=== PATIENT | female | born 2005 | race Two or more races ===

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

== ENCOUNTER 2025-02-04 21:38 | Emergency (ER) | payer OTHER, SELFPAY ==
[2025-02-04 21:53] VITALS: BP 109/63; PULSE 77; RESP 16; TEMP 36.4; O2SAT 95; BMI 26.6
--- NOTE | 2025-02-04 22:55 | PC.NURSE ---
pt awaiting provider eval- no complaints at this time
--- NOTE | 2025-02-04 23:36 | ED.EXTPRO ---
HPI - Extremity Problem General Chief complaint: Extremity Injury, Upper Stated complaint: left thumb inj Time Seen by Provider: 02/04/25 22:24 Source: patient Mode of arrival: ambulatory Limitations: no limitations History of Present Illness ED Provider: Nicolasa Thornton NP HPI Narrative: Patient is a 19-year-old female with AMADO 05/20/2025 presenting to emergency department for evaluation of crush injury to the left thumb, bruits accidentally slamming in a car door just prior to arrival. She reports that she typically gets panicked with any injury which prompted her immediate presentation to the emergency department. She has localized pain and swelling but states she is able to move the finger. No injury to the nail bed. Hand dominant. Related Data Home Medications ?Medication ?Instructions ?Recorded ?Confirmed albuterol sulfate 90 mcg/actuation 2 inh inhalation Q4-6H PRN 10/31/22 01/01/23 breath activated powder inhaler shortness of breath or wheezing Previous Rx's ?Medication ?Instructions ?Recorded polymyxin B sulfate 10,000 1 drp ophthalmic (eye) Q3H while 01/01/23 unit-trimethoprim 1 mg/mL eye awake; do not exceed 6 doses in 24 drops (Polytrim) hours 7 days #10 mL sodium chloride 0.65 % nasal spray 2 spray intranasal Q4H PRN dry 01/01/23 aerosol (Saline Nasal Mist) nasal passages #44 mL doxylamine 10 mg-pyridoxine (vit 1 tab PO BEDTIME 30 days #30 tabs 09/08/24 B6) 10 mg tablet,delayed release vit no.95-ferrous 1 tab PO DAILY #30 tabs 09/08/24 fumarate 28 mg-folic acid 800 mcg tablet () Allergies Allergy/AdvReac Type Severity Reaction Status Date / Time enviromental allergies Allergy Intermediate Nasal Uncoded 02/04/25 21:58 Discharge Review of Systems Review of Systems: Yes all other systems are reviewed and are negative PMFSH Past Medical History Attestation statement: The following information was validated with the patient. Source: old records reviewed Medical History Miscarriage Adjustment disorder Mild intermittent asthma Social History Social History Smoked in Last 30 Days: No Use of substances other than those prescribed or required for medical reasons: No Advance Directives: No Advance Directives Information Provided: No Patient : Yes Physical Exam Vital Signs: Vital Signs: Last Vital Signs Temp 97.5 F 02/04/25 21:53 Pulse 77 02/04/25 21:53 Resp 16 02/04/25 21:53 BP 109/63 02/04/25 21:53 Pulse Ox 95 02/04/25 21:53 O2 Del Method Room Air 02/04/25 21:53 BMI result Body Mass Index 26.6 Appearance: Alert.?Oriented to person, place and time. No acute distress.?Normal affect. CVS: Heart sounds normal. Normal heart rate and rhythm.? Pulses normal.?? Respiratory: No respiratory distress.? Lung sounds clear to auscultation bilaterally?? Skin: Skin warm and dry.? Normal skin color.? Extremities: Localized swelling to the left thumb DIP, no obvious deformity. No evidence of subungual hematoma at this time. Mild decreased flexion but able to hold the finger in full extension Neuro: Moves all extremities spontaneously. Sensation intact bilaterally. Ambulates with normal steady gait. Medical Decision Making Medical Decision Making MDM Narrative: Patient is a 19-year-old female who presents emergency department for evaluation of a crush injury to the distal tip of the left thumb as per HPI she is right-hand dominant. We discussed obtaining an x-ray to evaluate for fracture, we reviewed the low risk of radiation exposure to unborn fetus in , however elected to use shared decision-making with the patient, she is going to defer x-ray imaging at this time. I did discuss with the conservative treatment in addition to using a finger splint, and worrisome signs and symptoms that would warrant re-evaluation. She has near full range of motion to finger at this time. All questions were answered. Differential Diagnosis Differential Diagnoses: The differential diagnosis associated with the presentation includes (Fracture, dislocation, contusion, sprain) Independent Historian Clinical information obtained from an independent historian. History obtained from or confirmed by: Spouse External Record Review External record reviewed: Outpatient record Tests considered The following testing was considered but not selected: See narrative above, XR deferred Prescription Management I considered prescription management with: Pain Medication (Acetaminophen) Discharge Plan Discharge Clinical Impression: Crushing injury of left thumb Qualifiers: Encounter type: initial encounter Qualified Code(s): S67.02XA - Crushing injury of left thumb, initial encounter Patient Disposition: Home, Self-Care Instructions: Crush Injury (ED) Additional Instructions: As discussed, you were offered to have x-ray imaging in the emergency department today to check for fracture to the thumb, the risk of radiation exposure to the fetus and is very low, using shared decision-making you have declined the x-ray at this time. You are able to move the finger inches reassuring. I recommend that you utilize a finger splint over the next few days especially while there was any pain, to immobilize the joint and worsen chills injury there. If you are developing severe worsening pain, swelling, inability to of the finger you should consider re-evaluation. Apply ice for 10-15 minutes 4-6 times daily over the next few days. You may take Tylenol at your discretion for pain associated with this. Prescriptions: No Action doxylamine-pyridoxine (vit B6) 10-10 mg tablet,delayed release (DR/EC) 1 tab PO BEDTIME 30 Days Qty: 30 0RF PNV cmb#95-ferrous fumarate-FA [] 28 mg iron- 800 mcg tablet 1 tab PO DAILY Qty: 30 0RF albuterol sulfate 90 mcg/actuation aerosol powdr breath activated 2 inh inhalation Q4-6H PRN (Reason: shortness of breath or wheezing) polymyxin B sulf-trimethoprim [Polytrim] 10,000 unit- 1 mg/mL drops 1 drp ophthalmic (eye) Q3H 7 Days Qty: 10 0RF Saline Nasal Mist 0.65 % aerosol,spray 2 spray intranasal Q4H PRN (Reason: dry nasal passages) Qty: 44 0RF Referrals: Payton Del Valle MD [Primary Care Provider] - Print Language: Bulgarian
[2025-02-04 23:47] VITALS: BP 105/61; PULSE 85; RESP 16; TEMP 36.9; O2SAT 96
--- NOTE | 2025-02-04 23:51 | PC.NURSE ---
Reviewed discharge instructions with pt,, pt verbalized understanding, splint applied finger. positive cms and pulses to hand .
[2025-02-04 23:52] VITALS: BP 105/61; PULSE 85; RESP 16; TEMP 36.9; O2SAT 96
== END 2025-02-04 23:53 | disposition home or self-care (01) ==
PROVIDERS: Emergency Provider Emergency Medicine; PCP Pediatrics
DX: S67.02XA Crushing injury of left thumb, initial encounter (principal); X58.XXXA Exposure to other specified factors, initial encounter; Y93.9 Activity, unspecified; Y92.810 Car as the place of occurrence of the external cause; Y99.8 Other external cause status; Z79.899 Other long term (current) drug therapy
CPT/HCPCS: 99283; 99284

== ENCOUNTER 2025-05-26 11:40 | Emergency (ER) | payer OTHER, SELFPAY ==
[2025-05-26] VITALS (9 sets, daily range): BP systolic 101–113; BP diastolic 45–65; PULSE 79–124; RESP 14–20; TEMP 37.1–39.4; O2SAT 95–98; BMI 28.3
--- NOTE | ~2025-05-26 | US_ITS ---
EXAMINATION: US PELVIS CLINICAL INFORMATION: 1 week , fever, rule out retained products of conception. COMPARISON: None available. TECHNIQUE: Ultrasound of the pelvis is performed using both transabdominal technique only. FINDINGS: Uterus: The uterus is anteverted and measures 14.8 x 5.2 x 9.5 cm. Normal-appearing cervix. The double wall endometrial thickness is approximately 6 mm. Mild heterogeneity due to recent childbirth. No retained products identified. The uterus is smooth in contour and has normal myometrial echogenicity. No visible fibroid. Adnexa: Both ovaries are visualized. There is normal color flow to the adnexa. There is no ovarian torsion. There is no pelvic ascites or fluid collection. No adnexal masses. Right ovary measures 4.0 x 2.7 x 2.3 cm. Volume = 13.0 mL. Normal sonographic appearance. Left ovary measures 4.0 x 2.2 x 4.2 cm. Volume = 19.4 mL. Normal sonographic appearance. US/US pelvic complete IMPRESSION: 1. Expected appearance of the uterus and endometrium. No retained products of conception identified. No myometrial masses. 2. Normal ovaries and adnexal structures bilaterally. 3. No free pelvic fluid. Electronically signed by: Geo Mcclain MD 05/26/2025 04:36 PM EDT
--- NOTE | ~2025-05-26 | XR_ITS ---
EXAMINATION: XR CHEST CLINICAL INFORMATION: fever COMPARISON: August 11, 2012 chest x-rays not available on PACS system. TECHNIQUE: PA and lateral views FINDINGS: No consolidation, pleural effusion or pneumothorax. No hyperinflation. Cardiomediastinal silhouette size is normal. Osseous structures are intact. XR/XR chest 2V IMPRESSION: Normal chest x-ray. Electronically signed by: Maximilian Dubose MD 05/26/2025 12:43 PM EDT
--- OUTSIDE RECORDS SUMMARY | 2025-05-26 11:34 | XMS_ITS | Encounter Summary ---
Author Organization [facility] Address [address] [place] [address] Phone Care Team Providers Care Etl Database Developer Name Role Phone Payton Del Valle MD Primary Care Provider [phone] Reason for Visit * Reason Comments ED Admission Encounter Details Date Type Department Care Team (Late st Contact Info) Description 05/26/2025 11:34 AM EDT - Present Emergency [facility] - Patient Ping Social History Tobacco Use Types Packs/Day Years Used Date Smoking Tobacco: Never Smokeless Tobacco: Never Comments:Never smoker Hunger/Food Answer Date Recorded In the last 12 months, did y ou or your family ever eat less than you felt you should because there wasn't enough money for food? No 06/24/2024 Stable Housing Answer Date Recorded Are you worried that in the next 2 months you may not have stable housing? No 06/24/2024 Transportation Concerns Answer Date Rec orded In the last 12 months, have you or your family ever had to go without healthcare because you didn't have a way to get there? No 06/24/2024 Hazards in Home Answer Date Recorded Think about the place you li ve. Do you have problems with any of the following? Pests (mice or roaches), mold, no/not working smoke detectors, water leaks, no window guards. No 2023 Financing Utilities Answer Date Recorde d In the last 12 months, has t he electric, gas, oil, or water company threatened to shut off your services in your home? No 06/24/2024 Safety at Home Answer Date Recorded Are you or your family worried about feeling saf e in your home? No 06/24/2024 Outside Support Answer Date Recorded Do you feel that you need mo re support from other people or programs to help you care for yourself or your family? No 06/24/2024 Understanding Health Concerns Answer Da te Recorded Do you need help understandi ng your or your child's healthcare needs (diagnosis, medications, plan, etc.)? No 06/24/2024 Financing Health Concerns Answer Date R ecorded In the last 12 months, was t here a time when your child needed to see a doctor or get medications or supplies but could not because of cost? No 06/24/2024 Missing School or Work Answer Date Luis rded Did you or your child miss s chool or work because of a health problem that could have been avoided? No 06/24/2024 Child Education Answer Date Recorded Do you have concerns about y our/your child's learning or behavior in school, preschool, or daycare? No 06/24/2024 Comments No Sex and Gender Information Value Date Recorded Sex Assigned at Female 06/24/2024 11:35 AM EDT Legal Sex Female 5:22 PM EDT Gender Identity Female 06/24/2024 11:35 AM EDT Sexual Orientation Straight 12/10/2022 6: 07 PM EDT documented as of this encounter Plan of Treatment Not on file documented as of this encounter Visit Diagnoses Not on filedocumented in this encounter Care Teams Etl Database Developer Relationship Specialty Start Date End Date Payton Del Valle MD [address] [facility] [place] [id number] PCP - General 04/05/17 documented as of this encounter
--- NOTE | 2025-05-26 11:54 | ED.GENADULT ---
HPI - General Adult General Chief complaint: Fever Stated complaint: headache since monday 06/04 pain Time Seen by Provider: 05/26/25 11:54 History of Present Illness ED Provider: Aimee MARQUEZ narrative: The patient is a 19-year-old female. She has a history of asthma but is otherwise generally healthy. The patient is 1 week from a vaginal delivery at [facility]. Apparently she was found to be group B strep positive and received antibiotics of the time of delivery. She was discharged from the hospital 1 day after delivery. She was not discharged on antibiotics. The patient says that she was doing well until 2 days ago when she started to feel unwell with chills and a sense of fever. She has had mild nasal discharge. A mild cough. No significant abdominal pain. No new vaginal discharge. Today she had 2 episodes of significant shaking chills and ultimately came to the hospital by ambulance because of the symptoms. No urinary symptoms. She has had a headache with these symptoms. She says she doesn't ty Related Data Home Medications ?Medication ?Instructions ?Recorded ?Confirmed albuterol sulfate 90 mcg/actuation 2 inh inhalation Q4-6H PRN 10/31/22 01/01/23 breath activated powder inhaler shortness of breath or wheezing Previous Rx's ?Medication ?Instructions ?Recorded polymyxin B sulfate 10,000 1 drp ophthalmic (eye) Q3H while 01/01/23 unit-trimethoprim 1 mg/mL eye awake; do not exceed 6 doses in 24 drops (Polytrim) hours 7 days #10 mL sodium chloride 0.65 % nasal spray 2 spray intranasal Q4H PRN dry 01/01/23 aerosol (Saline Nasal Mist) nasal passages #44 mL doxylamine 10 mg-pyridoxine (vit 1 tab PO BEDTIME 30 days #30 tabs 09/08/24 B6) 10 mg tablet,delayed release vit no.95-ferrous 1 tab PO DAILY #30 tabs 09/08/24 fumarate 28 mg-folic acid 800 mcg tablet () amoxicillin 875 mg-potassium 1 tab PO BID #16 tabs 05/26/25 clavulanate 125 mg tablet Allergies Allergy/AdvReac Type Severity Reaction Status Date / Time enviromental allergies Allergy Intermediate Nasal Uncoded 05/26/25 11:51 Discharge Review of Systems Review of Systems: Yes all other systems are reviewed and are negative [facility] Past Medical History Medical History Miscarriage Adjustment disorder Mild intermittent asthma Social History Social History Smoked in Last 30 Days: No Use of substances other than those prescribed or required for medical reasons: No Advance Directives: No Advance Directives Information Provided: Yes Patient : No Physical Exam ED Vital Signs: Vital Signs - 24 hr 05/26/25 11:48 05/26/25 12:51 05/26/25 13:24 Temperature 103 F H 100 F Pulse Rate 124 H 112 H 106 H Respiratory Rate 20 18 16 Blood Pressure 106/57 L 101/60 103/53 L Pulse Oximetry 96 98 95 Oxygen Delivery Method Room Air Room Air Room Air Oxygen Flow Rate 05/26/25 13:40 05/26/25 13:44 05/26/25 14:00 Temperature 98.8 F Pulse Rate 98 93 89 Respiratory Rate 18 20 20 Blood Pressure 105/57 L 113/57 L 111/65 Pulse Oximetry 98 96 96 Oxygen Delivery Method Room Air Room Air Room Air Oxygen Flow Rate 05/26/25 16:19 05/26/25 17:14 Temperature 98.9 F Pulse Rate 87 87 Respiratory Rate 14 14 Blood Pressure 101/45 L 101/45 L Pulse Oximetry 95 95 Oxygen Delivery Method Nasal Cannula Nasal Cannula Oxygen Flow Rate 2 2 BMI result Body Mass Index 28.3 Const Other: The patient is awake and alert. She has a normal mental status. She does not appear toxic or in distress. She does not seem in pain or respiratory difficulty. Orientation/consciousness: patient oriented x3 HENMT Other: The face is symmetrical. ?Mucous membranes moist. Pharynx is unremarkable. Eyes Other: Pupils are round equal, conjunctivae are clear, extraocular movements intact Neck Neck: Yes normal visual inspection, Yes full ROM, Yes no lymphadenopathy and Yes no meningeal signs Resp Effort & Inspection: normal respiratory effort Auscultation: clear to auscultation bilaterally Cardio Other: No murmur heard Rate: tachycardic Rhythm: regular rhythm Heart sounds: S1 normal heart sound present and S2 normal heart sound present GI Other: The abdomen is flat and soft and does not seem tender. Other: Unremarkable external vaginal genitalia. There was a small amount of rust colored discharge in the vaginal vault but no purulence. On bimanual exam there was no significant cervical motion tenderness or generalized uterine tenderness or adnexal tenderness. Skin Other: The skin is dry and unremarkable Neuro General: patient oriented x3, tone normal, moves all extremities, no meningeal signs, no focal motor deficits and CN's II-XI intact bilaterally Extrem Other: There is no calf swelling or tenderness. No asymmetry. No peripheral edema. Medications Administered Discontinued Medications Generic Name Dose Route Start Last Admin Trade Name Freq PRN Reason Stop Dose Admin Acetaminophen 650 mg 05/26/25 12:25 05/26/25 12:39 Acetaminophen 325 Mg Tablet PO 05/26/25 12:26 650 mg ONCE ONE Administration Ceftriaxone Sodium 2 gm 05/26/25 13:06 05/26/25 13:11 Ceftriaxone Sodium 2 Gm Vial IVPUSH 05/26/25 13:07 2 gm ONCE ONE Administration Sodium Chloride 1,000 mls @ 999 mls/hr 05/26/25 12:15 05/26/25 13:22 Ns IV 05/26/25 13:15 Infused .Q1H1M LUCIANO Infusion Metronidazole 500 mg in 100 mls @ 100 mls/hr 05/26/25 13:06 05/26/25 14:36 Flagyl IV 05/26/25 14:05 Infused ONCE ONE Infusion Lactated Ringer's 1,000 mls @ 999 mls/hr 05/26/25 14:15 05/26/25 15:00 Lr IV 05/26/25 15:15 999 mls/hr .Q1H1M LUCIANO Administration Ibuprofen 400 mg 05/26/25 12:25 05/26/25 12:39 Ibuprofen 400 Mg Tablet PO 05/26/25 12:26 400 mg ONCE ONE Administration Metoclopramide HCl 10 mg 05/26/25 13:19 05/26/25 13:27 Metoclopramide Hcl 10 Mg/2 Ml Vial IVPUSH 05/26/25 13:20 10 mg ONCE ONE Administration Medical Decision Making Medical Decision Making MDM Narrative: The patient is a 19-year-old female who was 1 week from a vaginal delivery at [facility]. She is . She presents with a 2 day history of a fever and she describes having a lot of shaking chills. Her description suggests possible rigors. The patient is clinical appearance does not seem very remarkable however. She was tachycardic when she 1st arrived with a heart rate of 124. At that time she was febrile with a temperature of 103 degrees. Her mental status was normal and her demeanor was nontoxic and her neck was supple although she was complaining of a headache. She has a very mild description of possible viral symptoms such as a mild runny nose and cough but please do not seem to be significant symptoms. Her lungs are clear. Her abdomen is soft and nontender. She does not really have any abdominal complaints or complaints that would suggest endometritis. She denies significant vaginal discharge. On exam she has only a minimal amount of rust colored discharge in the vaginal vault and a fairly benign bimanual exam. She has a negative chest x-ray. She has a negative influenza and COVID swab. Also an expanded respiratory panel was negative. Her abdomen seems benign and I do not think there was an indication for a CT scan of the abdomen. An ultrasound of the pelvis was done to ensure that there were no retained products of conception. The ultrasound was unremarkable. The patient was treated symptomatically with IV fluids and also with ibuprofen and acetaminophen. In case of endometritis she has been covered empirically with ceftriaxone and metronidazole. She was observed for several hours and seemed to be feeling much better. Overall my impression is that she either has some kind of viral syndrome or she has a mild case of endometritis. She will be discharged with a prescription for Augmentin. Since she received a dose of metronidazole in the emergency room she will be advised to pump and dump her breast milk this evening and tonight. I think she can start again in the morning. She can breastfeed on the Augmentin. She should follow up with her OB. Lab Data 05/26/25 12:12 05/26/25 12:12 Labs: Lab Results 05/26/25 05/26/25 05/26/25 Range/Units 12:03 12:12 12:13 WBC 14.6 H (4.8-10.8) X10*3/uL RBC 4.12 L (4.20-5.50) X10*6/uL Hgb 12.7 D (12.0-16.0) g/dl Hct 35.8 L (37.0-47.0) % MCV 86.9 (80.0-98.0) fL MCH 30.8 (27.0-33.0) pg MCHC 35.5 H (31.0-35.0) g/dl RDW 13.6 (11.0-16.0) % Plt Count 233 (160-400) X10*3/uL MPV 10.1 (9.4-12.3) fL Immature Gran % (Auto) Cancelled Neut % (Auto) Cancelled Lymph % (Auto) Cancelled Mcdonough % (Auto) Cancelled Eos % (Auto) Cancelled Baso % (Auto) Cancelled Lymph # (Auto) Cancelled Mcdonough # (Auto) Cancelled Eos # (Auto) Cancelled Baso # (Auto) Cancelled Abs Immat Gran (auto) Cancelled Absolute Neuts (auto) Cancelled Absolute Nucleated RBC 0.000 (0.0-0.012) X10*3/uL Nucleated RBC % (auto) 0.0 (0.0-0.2) /100WBC Neutrophils % (Manual) 87 H (45-73) % Band Neutrophils % 4 (3-5) % Lymphocytes % (Manual) 2 L (20-40) % Monocytes % (Manual) 4 (2-11) % Eosinophils % (Manual) 3 (0-4) % Abs Neuts (Manual) 13.3 H (2.0-8.3) X10*3/uL Lymphocytes # (Manual) 0.3 L (1.2-4.9) X10*3/uL Monocytes # (Manual) 0.6 (0.1-1.2) X10*3/uL Eosinophils # (Manual) 0.4 (0.0-0.4) X10*3/uL Toxic Vacuolation PRESENT Platelet Estimate NORMAL (NORMAL) Large Platelets PRESENT Plt Morphology Comment NOTED RBC Morphology NOTED Dilip Cells 1+ (0-2) /OIF Sodium 138 (135-145) mmol/L Potassium 3.6 (3.3-5.1) mmol/L Chloride 109 H (96-108) mmol/L Carbon Dioxide 20 L (22-29) mmol/L Anion Gap 13 (12-20) BUN 11 (9-16) mg/dL Creatinine 0.83 (0.5-1.4) mg/dL Estim Creat Clear Calc 96.1 Estimated GFR > 60 Random Glucose 103 (60-115) mg/dL Lactic Acid 0.9 (0.5-2.0) mmol/L Calcium 8.7 D (8.4-10.2) mg/dL Total Bilirubin 0.8 (0.0-1.0) mg/dL Direct Bilirubin 0.3 (0.0-0.5) mg/dL AST 17 (5-31) U/L ALT 22 (0-31) U/L Alkaline Phosphatase 124 H (39-117) U/L C-Reactive Protein 17.46 H (< or = 0.50) mg/dL Total Protein 6.9 (6.5-8.0) g/dL Albumin 3.9 (3.5-5.0) g/dL Lipase 11 (8-78) U/L Urine Color Dark Yellow Urine Appearance Clear Urine pH 5.5 (5.0-9.0) Ur Specific Kennett >= 1.030 H (1.005-1.025) Urine Protein 30 (1+) H (Neg-Trace) mg/dL Urine Glucose (UA) Negative (Negative) mg/dL Urine Ketones Trace (Negative) mg/dL Urine Blood Small (1+) H (Negative) Urine Nitrite Negative (Negative) Ur Leukocyte Esterase Small (1+) H (Negative) Urine RBC 0-2 (0-2) /HPF Urine WBC 21-50 H (0-5) /HPF Ur Squamous Epith Cells 3-5 (0-2) /HPF Urine Bacteria None Seen (None Seen) Hyaline Casts 3-5 (0-2) /LPF Respiratory Panel Tan Adenovirus (Rapid PCR) (Not Detect.) B.pert (TEM-PCR) (Not Detect.) B.parapertussis DNA PCR (Not Detect.) C. pneumoniae DNA (PCR) (Not Detect.) Chlam trachomat DNA PCR (Not Detect.) Coronavirus OC43 (PCR) (Not Detect.) Coronavirus HKU1 (PCR) (Not Detect.) Coronavirus 229E (PCR) (Not Detect.) COVID-19 (RAINA) Negative (Negative) COVID-19 Clin Com See Note Coronavirus NL63 (PCR) (Not Detect.) Human Metapneumovir PCR (Not Detect.) Influenza Type A (DIMITRIS) Negative (Negative) Influenza A (RT-PCR) (Not Detect.) Influenza A (H1) PCR (Not Detect.) Influ A (H1/09) PCR (Not Detect.) Influenza A (H3) PCR (Not Detect.) Influenza Type B (DIMITRIS) Negative (Negative) Influenza B (RT-PCR) (Not Detect.) Influenza A & B Note See Note M. pneumoniae (PCR) (Not Detect.) N.gonorrhoeae DNA (PCR) (Not Detect.) Parainfluenza 1 (PCR) (Not Detect.) Parainfluenza 2 (PCR) (Not Detect.) Parainfluenza 3 (PCR) (Not Detect.) Parainfluenza 4 (PCR) (Not Detect.) RSV (PCR) (Not Detect.) Entero/Rhino (PCR) (Not Detect.) SARS-CoV-2 RNA (RT-PCR) (Not Detect.) T. vaginalis (PCR) (Not Detect) Bact vaginosis (PCR) (Negative) C. krusei/glabrata (PCR) (Not Detect) Maxine group (PCR) (Not Detect) 05/26/25 05/26/25 Range/Units 13:05 15:11 WBC (4.8-10.8) X10*3/uL RBC (4.20-5.50) X10*6/uL Hgb (12.0-16.0) g/dl Hct (37.0-47.0) % MCV (80.0-98.0) fL MCH (27.0-33.0) pg MCHC (31.0-35.0) g/dl RDW (11.0-16.0) % Plt Count (160-400) X10*3/uL MPV (9.4-12.3) fL Immature Gran % (Auto) Neut % (Auto) Lymph % (Auto) Mcdonough % (Auto) Eos % (Auto) Baso % (Auto) Lymph # (Auto) Mcdonough # (Auto) Eos # (Auto) Baso # (Auto) Abs Immat Gran (auto) Absolute Neuts (auto) Absolute Nucleated RBC (0.0-0.012) X10*3/uL Nucleated RBC % (auto) (0.0-0.2) /100WBC Neutrophils % (Manual) (45-73) % Band Neutrophils % (3-5) % Lymphocytes % (Manual) (20-40) % Monocytes % (Manual) (2-11) % Eosinophils % (Manual) (0-4) % Abs Neuts (Manual) (2.0-8.3) X10*3/uL Lymphocytes # (Manual) (1.2-4.9) X10*3/uL Monocytes # (Manual) (0.1-1.2) X10*3/uL Eosinophils # (Manual) (0.0-0.4) X10*3/uL Toxic Vacuolation Platelet Estimate (NORMAL) Large Platelets Plt Morphology Comment RBC Morphology Dilip Cells /OIF Sodium (135-145) mmol/L Potassium (3.3-5.1) mmol/L Chloride (96-108) mmol/L Carbon Dioxide (22-29) mmol/L Anion Gap (12-20) BUN (9-16) mg/dL Creatinine (0.5-1.4) mg/dL Estim Creat Clear Calc Estimated GFR Random Glucose (60-115) mg/dL Lactic Acid (0.5-2.0) mmol/L Calcium (8.4-10.2) mg/dL Total Bilirubin (0.0-1.0) mg/dL Direct Bilirubin (0.0-0.5) mg/dL AST (5-31) U/L ALT (0-31) U/L Alkaline Phosphatase (39-117) U/L C-Reactive Protein (< or = 0.50) mg/dL Total Protein (6.5-8.0) g/dL Albumin (3.5-5.0) g/dL Lipase (8-78) U/L Urine Color Urine Appearance Urine pH (5.0-9.0) Ur Specific Kennett (1.005-1.025) Urine Protein (Neg-Trace) mg/dL Urine Glucose (UA) (Negative) mg/dL Urine Ketones (Negative) mg/dL Urine Blood (Negative) Urine Nitrite (Negative) Ur Leukocyte Esterase (Negative) Urine RBC (0-2) /HPF Urine WBC (0-5) /HPF Ur Squamous Epith Cells (0-2) /HPF Urine Bacteria (None Seen) Hyaline Casts (0-2) /LPF Respiratory Panel Tan See Note Adenovirus (Rapid PCR) Not Detected (Not Detect.) B.pert (TEM-PCR) Not Detected (Not Detect.) B.parapertussis DNA PCR Not Detected (Not Detect.) C. pneumoniae DNA (PCR) Not Detected (Not Detect.) Chlam trachomat DNA PCR NOT DETECTED (Not Detect.) Coronavirus OC43 (PCR) Not Detected (Not Detect.) Coronavirus HKU1 (PCR) Not Detected (Not Detect.) Coronavirus 229E (PCR) Not Detected (Not Detect.) COVID-19 (RAINA) (Negative) COVID-19 Clin Com Coronavirus NL63 (PCR) Not Detected (Not Detect.) Human Metapneumovir PCR Not Detected (Not Detect.) Influenza Type A (DIMITRIS) (Negative) Influenza A (RT-PCR) Not Detected (Not Detect.) Influenza A (H1) PCR Not Detected (Not Detect.) Influ A (H1/09) PCR Not Detected (Not Detect.) Influenza A (H3) PCR Not Detected (Not Detect.) Influenza Type B (DIMITRIS) (Negative) Influenza B (RT-PCR) Not Detected (Not Detect.) Influenza A & B Note M. pneumoniae (PCR) Not Detected (Not Detect.) N.gonorrhoeae DNA (PCR) NOT DETECTED (Not Detect.) Parainfluenza 1 (PCR) Not Detected (Not Detect.) Parainfluenza 2 (PCR) Not Detected (Not Detect.) Parainfluenza 3 (PCR) Not Detected (Not Detect.) Parainfluenza 4 (PCR) Not Detected (Not Detect.) RSV (PCR) Not Detected (Not Detect.) Entero/Rhino (PCR) Not Detected (Not Detect.) SARS-CoV-2 RNA (RT-PCR) Not Detected (Not Detect.) T. vaginalis (PCR) NOT DETECTED (Not Detect) Bact vaginosis (PCR) NEGATIVE (Negative) C. krusei/glabrata (PCR) NOT DETECTED (Not Detect) Maxine group (PCR) NOT DETECTED (Not Detect) Discharge Plan Discharge Clinical Impression: fever Patient Disposition: Home, Self-Care Additional Instructions: The exact source of your fever is not entirely clear. You may have a mild case of a condition called ?endometritis. ? This is an infection of the lining of the uterus. Nevertheless I would recommend that you take the antibiotic prescribed. Please take a dose this evening and then 2 times a day, approximately every 12 hours. You may continue to use ibuprofen and acetaminophen as needed for discomfort or fever. Please contact your OB office at [facility] in the morning for a follow up appointment. I would recommend that you ?pump and dump? your breast milk tonight and in the morning. However after tomorrow morning you may resume normal . Call your OB or return to the emergency room if significantly worse. Prescriptions: New amoxicillin-pot clavulanate 875-125 mg tablet 1 tab PO BID Qty: 16 0RF No Action doxylamine-pyridoxine (vit B6) 10-10 mg tablet,delayed release (DR/EC) 1 tab PO BEDTIME 30 Days Qty: 30 0RF PNV no.95-ferrous fumarate-FA [] 28 mg iron- 800 mcg tablet 1 tab PO DAILY Qty: 30 0RF albuterol sulfate 90 mcg/actuation aerosol powdr breath activated 2 inh inhalation Q4-6H PRN (Reason: shortness of breath or wheezing) polymyxin B sulf-trimethoprim [Polytrim] 10,000 unit- 1 mg/mL drops 1 drp ophthalmic (eye) Q3H 7 Days Qty: 10 0RF Saline Nasal Mist 0.65 % aerosol,spray 2 spray intranasal Q4H PRN (Reason: dry nasal passages) Qty: 44 0RF Referrals: [facility], [place] [Outside] Interventions: ED Discharge Assessment Last Done: 05/26/25 17:14 Discharge Date/Time: 05/26/25 17:14 Print Language: Japanese
[2025-05-26 12:12] LABS: Appearance Urine Clear; Glucose Urine UA Negative (Negative); PH 5.5 (5.0-9.0); Specific Gravity - Urine >= 1.030 (1.005-1.025); UMIC TRIGGER UACC YES
[2025-05-26 12:21] LABS: Hematocrit 35.8 % (37.0-47.0); Hemoglobin 12.7 g/dl (12.0-16.0); Mean Corpuscular HGB Conc 35.5 g/dl (31.0-35.0); Mean Corpuscular Hemoglobin 30.8 pg (27.0-33.0); Mean Corpuscular Volume 86.9 fL (80.0-98.0); NRBC Abs Auto 0.000 X10*3/uL (0.0-0.012); NRBC Pct Auto 0.0 /100WBC (0.0-0.2); Platelet Count 233 X10*3/uL (160-400); Red Blood Count 4.12 X10*6/uL (4.20-5.50); White Blood Count 14.6 X10*3/uL (4.8-10.8)
[2025-05-26 12:28] LABS: UACC Culture Trigger YES
[2025-05-26 12:34] LABS: COVID-19 Test Negative (Negative); IDNOW Serial# 55D5AD1C
[2025-05-26 12:35] LABS: IDNOW Serial# 58CA691E; Influenza B2 Negative (Negative)
[2025-05-26 12:36] LABS: Alanine Aminotransferase 22 U/L (0-31); Albumin Level 3.9 g/dL (3.5-5.0); Alkaline Phosphatase 124 U/L (39-117); Anion Gap 13 (12-20); Aspartate Amino Transferase 17 U/L (5-31); Blood Urea Nitrogen 11 mg/dL (9-16); Calcium 8.7 mg/dL (8.4-10.2); Carbon Dioxide 20 mmol/L (22-29); Chloride 109 mmol/L (96-108); Creatinine Clr Calc Pharmacy 96.1; Estimated Glomerular Filt Rate > 60; Lipase 11 U/L (8-78); Potassium 3.6 mmol/L (3.3-5.1); Sodium 138 mmol/L (135-145); Total Protein 6.9 g/dL (6.5-8.0)
[2025-05-26 12:46] LABS: Band Neutrophils Percent 4 % (3-5); Eosinophils Absolute Manual 0.4 X10*3/uL (0.0-0.4); Eosinophils Percent Manual 3 % (0-4); Lymphocytes Absolute Manual 0.3 X10*3/uL (1.2-4.9); Lymphocytes Percent Manual 2 % (20-40); Monocytes Absolute Manual 0.6 X10*3/uL (0.1-1.2); Monocytes Percent Manual 4 % (2-11); Neutrophils Absolute Manual 13.3 X10*3/uL (2.0-8.3); Neutrophils Percent Manual 87 % (45-73)
[2025-05-26 12:47] LABS: Burr Cells 1+ (0-2) /OIF; Large Platelet PRESENT; RBC Morphology NOTED; Toxic Vacuolation PRESENT
--- NOTE | 2025-05-26 12:55 | PC.NURSE ---
Pt presented via EMS from home, 1 week , vaginal delivery at [facility] with no complications. Pt does report she had some kind of infection in and was given abx during labor. Reporting headache, chills and general malaise since Saturday worsening. Is having normal vaginal bleeding. Is . Denying any complications during her , first child. Febrile on arrival and meeting sepsis criteria, MD Yu alerted immediately.
[2025-05-26] MEDS: metroNIDAZOLE/NS 500 MG/100 ML PIGGYBACK 100 MG IV (13:18)
--- OUTSIDE RECORDS SUMMARY | 2025-05-26 14:05 | XMS_ITS | Encounter Summary ---
Author Organization [facility] Address [address] [place] [address] Phone Care Team Providers Care Vice Provost Name Role Phone Payton Del Valle MD Primary Care Provider Encounter Details Date Type Department Care Team (Late st Contact Info) Description 11/28/2011 Documentation [facility] Family Medicine [address] [place] [address] Family Medicine, Physician [address], [place] [phone] Social History Tobacco Use Types Packs/Day Years Used Date Smoking Tobacco: Never Assessed Comments Unknown Sex and Gender Information Value Date Recorded Sex Assigned at Female 06/24/2024 11:35 AM EDT Legal Sex Female 5:22 PM EDT Gender Identity Female 06/24/2024 11:35 AM EDT Sexual Orientation Straight 12/10/2022 6: 07 PM EDT documented as of this encounter Plan of Treatment Not on file documented as of this encounter Visit Diagnoses Not on filedocumented in this encounter Care Teams Vice Provost Relationship Specialty Start Date End Date Payton Del Valle MD [address] [facility] [place] [address] PCP - General 04/05/17 documented as of this encounter
--- OUTSIDE RECORDS SUMMARY | 2025-05-26 14:05 | XMS_ITS | Encounter Summary ---
Author Organization [facility] Address [address] [place] [address] Phone Care Team Providers Care [facility] Office Supervisor Name Role Phone Payton Del Valle MD Primary Care Provider Encounter Details Date Type Department Care Team (Late st Contact Info) Description 11/26/2012 Documentation [facility] Family Medicine [address] [place] [address] Family Medicine, Physician [address], [place] [phone] Social History Tobacco Use Types Packs/Day Years [...] on filedocumented in this encounter Care Teams Animal [facility] Office Supervisor Relationship Specialty Start Date End Date Payton Del Valle MD [address] [facility] [place] [address] PCP - General 04/05/17 documented as of this encounter
--- OUTSIDE RECORDS SUMMARY | 2025-05-26 14:05 | XMS_ITS | Encounter Summary ---
Author Organization [facility] Address [address] [place] [address] Phone Care Team Providers Care Automobile Insurance Claim Examiner Name Role Phone Payton Del Valle MD Primary Care Provider Encounter Details Date Type Department Care Team (Late st Contact Info) Description 04/12/2016 Documentation [facility] [place] Family Medicine [address] [place] [address] Family Medicine, Physician [address], [place] [address] Social History Tobacco Use Types Packs/Day Years [...] on filedocumented in this encounter Care Teams Automobile Insurance Claim Examiner Relationship Specialty Start Date End Date Payton Del Valle MD [address] [facility] [place] [address] PCP - General 04/05/17 documented as of this encounter
--- OUTSIDE RECORDS SUMMARY | 2025-05-26 14:05 | XMS_ITS | Encounter Summary ---
Author Organization [facility] Address [address] [place] [address] Phone Care Team Providers Care Lorry Weigher Name Role Phone Payton Del Valle MD Primary Care Provider [phone] Reason for Visit * Reason Onset Date Comments Discharge Follow-Up - ED 05/19/2025 Encounter Details Date Type Department Care Team (Late st Contact Info) Description 05/19/2025 Telephone [facility] [address] [place] [address] Ai Borrego LPN [address] [place] [address] Discharge Follow-Up - ED Social History Tobacco Use Types Packs/Day Years [...] PM EDT documented as of this encounter Miscellaneous Notes * Telephone Encounter - Payton Del Valle MD - 05/19/2025 12:38 PM EDT Noted. Thanks. PPP * Telephone Encounter - Ai Borrego LPN - 05/19/2025 10:24 AM EDT Pt admitted at [facility] 05/16 to give . EH documented in this encounter Plan of Treatment Not on file documented as of this encounter Visit Diagnoses Not on filedocumented in this encounter Care Teams Lorry Weigher Relationship Specialty Start Date End Date Payton Del Valle MD [address] [place] [address] [place] Ambrocio [address] PCP - General 04/05/17 documented as of this encounter
--- OUTSIDE RECORDS SUMMARY | 2025-05-26 14:05 | XMS_ITS | Encounter Summary ---
Author Organization [facility] Address [address] [place] [address] Phone Care Team Providers Care Tree Surgeon Name Role Phone Payton Del Valle MD Primary Care Provider Encounter Details Date Type Department Care Team (Late st Contact Info) Description 04/09/2013 Documentation [facility] [place] Family Medicine [address] [place] [address] Family Medicine, Physician [address], [place] [phone] Social History Tobacco Use Types Packs/Day Years [...] on filedocumented in this encounter Care Teams Tree Surgeon Relationship Specialty Start Date End Date Payton Del Valle MD [address] [facility] [address] PCP - General 04/05/17 documented as of this encounter
--- OUTSIDE RECORDS SUMMARY | 2025-05-26 14:06 | XMS_ITS | Encounter Summary ---
Author Organization [facility] Address [address] [place] [address] Phone Care Team Providers Care Physical Ther Name Role Phone Payton Del Valle MD Primary Care Provider Encounter Details Date Type Department Care Team (Late st Contact Info) Description 08/11/2012 Documentation [facility] [place] Family Medicine [address] [place] [address] Family Medicine, Physician [address], [place] [phone] Social History Tobacco Use Types Packs/Day Years [...] on filedocumented in this encounter Care Teams Physical Ther Relationship Specialty Start Date End Date Payton Del Valle MD [address] [facility] [place] [place] [address] PCP - General 04/05/17 documented as of this encounter
--- OUTSIDE RECORDS SUMMARY | 2025-05-26 14:06 | XMS_ITS | Encounter Summary ---
Author Organization [facility] Address [address] [place] [address] Phone Care Team Providers Care Wiring Technician Name Role Phone Payton Del Valle MD Primary Care Provider [phone] Encounter Details Date Type Department Care Team (Late st Contact Info) Description 08/14/2012 Documentation [facility] [place] Family Medicine [address] [place] [address] Family Medicine, Physician [address], [place] [phone] Social History Tobacco Use Types Packs/Day Years [...] on filedocumented in this encounter Care Teams Wiring Technician Relationship Specialty Start Date End Date Payton Del Valle MD [address] [facility] [place] [address] PCP - General 04/05/17 documented as of this encounter
--- OUTSIDE RECORDS SUMMARY | 2025-05-26 14:06 | XMS_ITS | Encounter Summary ---
Author Organization [facility] Address [address] [place] [address] Phone Care Team Providers Care Packager Name Role Phone Payton Del Valle MD Primary Care Provider Encounter Details Date Type Department Care Team (Late st Contact Info) Description 01/15/2017 Documentation [facility] [place] [address] [place] [address] Family Medicine, Physician [facility] [place], [place] [address] Social History Tobacco Use Types Packs/Day Years Used Date Smoking Tobacco: Never Comments:Never smoker Comments Unknown Sex and Gender Information Value [...] on filedocumented in this encounter Care Teams Packager Relationship Specialty Start Date End Date Payton Del Valle MD [address] [place] [address] PCP - General 04/05/17 documented as of this encounter
--- OUTSIDE RECORDS SUMMARY | 2025-05-26 14:06 | XMS_ITS | Encounter Summary ---
Author Organization [facility] Address [address] [place] [id number] Phone Care Team Providers Care Equipment Washer Name Role Phone Payton Del Valle MD Primary Care Provider Encounter Details Date Type Department Care Team (Late st Contact Info) Description 04/11/2017 Conversion Encounter [facility] [place] [address] [place] [address] Social History Tobacco Use Types Packs/Day Years [...] on filedocumented in this encounter Care Teams Equipment Washer Relationship Specialty Start Date End Date Payton Del Valle MD [address] [place] [address] PCP - General 04/05/17 documented as of this encounter
--- OUTSIDE RECORDS SUMMARY | 2025-05-26 14:06 | XMS_ITS | Clinical Summary ---
Author Organization [facility] Address [address] [place] [address] Phone Care Team Providers Care Furnace Installer Helper Name Role Phone Payton Del Valle MD Primary Care Provider Allergies Active Allergy Reactions Criticality Noted Date Comments Cat Dander 12/10/2022 Dog Epithelium 12/10/2022 Medications Spacer/Aero-Holdi ng Chambers (OPTICHAMBER TRISHA-LG MASK) device USE WITH INHALER UTD 0 8 Active albuterol HFA (PROAIR HFA) 108 (90 BASE) MCG/ACT inhalerIndication s:Moderate persistent asthma without complication Inhale 2 puffs every 4 (four) hours as needed for wheezing or shortness of breath. 1 Units 8 Active Emollient (CERAVE) creamIndications: Intrinsic eczema Use as directed twice daily 453 g 11 8 Active cetirizine 10 MG tabletIndications :Seasonal allergic rhinitis, unspecified trigger Take 1 tablet (10 mg total) by mouth daily. 60 tablet 3 0 Active Acne Medication 10 10 % gel APPLY TOPICALLY TO FACE EVERY MORNING 1 Active clindamycin 1 % gel APPLY TOPICALLY TO THE AFFECTED AREA TWICE DAILY 1 Active hydrocortisone 2.5 % ointment APPLY UNDER THE BREASTS AND ARMPITS TWICE DAILY NEEDED FOR FLARES 1 Active fluocinonide 0.05 % ointment 1 Active fluticasone-salme terol (Advair HFA) 115-21 MCG/ACT inhaler Inhale. 1 Active tretinoin 0.05 % cream 3 Active triamcinolone 0.1 % creamIndications: Intrinsic atopic dermatitis Apply topically 2 (two) times a day as needed for rash. Mix entire tube with 16 ounce container of Cerave cream. 80 g 1 3 Active Spacer/Aero-Holdi ng Chambers (OptiChamber Trisha) miscIndications:M oderate persistent asthma without complication Use with MDI as instructed 1 each 1 3 Active albuterol HFA 108 (90 Base) MCG/ACT inhalerIndication s:Moderate persistent asthma without complication Inhale 2 puffs every 4 (four) hours as needed for wheezing or shortness of breath. 1 Units 3 Active montelukast 5 MG chewable tabletIndications :Moderate persistent asthma without complication Chew 1 tablet (5 mg total) nightly. 60 tablet 3 4 Active Active Problems Problem Noted Date Diagnosed Date Intrinsic atopic dermatitis 12/24/2017 Overview (12/10/2022): Uses Cerave with steroid cream mixed in 12/16 - sees Dr. Avila for Derm - appt coming up Moderate persistent asthma without complication 11/14/2017 Overview (12/10/2022): 01/11 Followed by [facility] - on Advair, Singulair, Albuterol prn - hx of non compliance 12/16 Has not had her own inhaler. Has used her brother's or sister's every once in a while - maybe 1-2 times a month, no chamber Mom to make appt with [facility] again - used to be on Advair and Montelukast Encounters Date Type Department Care Team Description 05/26/2025 11:34 AM EDT - Present Emergency [facility] - Patient Ping 05/26/2025 Telephone [facility] [place] [address] [place] [address] Ai Borrego LPN headache/vomit following giving 05/19/2025 Telephone [facility] [place] [address] [place] [address] Ai Borrego LPN Discharge Follow-Up - ED 05/14/2025 11:28 AM EDT - 05/16/2025 3:00 PM EDT Hospital Encounter [facility] - Patient Della from Last 3 Months Immunizations Immunization Administration Dates Next Due COVID-19 Pfizer, bivalent, 12+ years 12/10/2022 COVID-19 Pfizer, seasonal, 12+ years 06/24/2024 COVID-19 Pfizer, cyrus-sucros e, 12+ years 10/09/2021 DTaP / Hep B / IPV 04/16/2006,01/16/2006, 006 DTaP 5 12/21/2009,12/17/2006 H1N1 08/12/2009,07/13/2009 HPV Vaccine 9 Valent 12/24/2017,10/26/2016 Hep A, ped/adol 04/21/2007,09/27/2006 Hep B, ped/adol 2005 Hib (HbOC) 12/17/2006 Hib (PRP-T) 04/08/2006,01/16/2006,2005 IPV 12/21/2009 Influenza Split 06/26/2013,04/24/2012,05/04/2010 Influenza, injectable, MDCK, trivalent, preservative free 06/24/2024 Influenza, injectable, quadrivalent 10/12/2015,1 09/04/2013 Influenza, injectable, quadr ivalent, preservative free 12/10/2022,06/01/2021,06/23/2020,06/02,06/28/2018,2017,09/29/2016 Influenza, injectable, trivalent 012,05/13/2009,05/28/2008,09/26,09/27/2006,06/19/2006 MMR 12/21/2009 MMRV 09/27/2006 Meningococcal Conj (Menactra) MCV4P 10/26/2016 Meningococcal Conj (Menquadfi) MCV4TT 12/10/2022 Pneumococcal Conjugate 12/17/2006,2005,01/16/2006,11/16 Tdap 10/26/2016 Varicella 12/21/2009 Family History Medical History Relation Name Comments Asthma Brother William Garcia Asthma Father Kamerondo Gracia Diabetes Father Kamerondo Garcia Hyperlipidemia Father Kamerondo Garcia Anxiety disorder Mother Lulú Garcia Migraines Mother Lulú Garcia Asthma Sister Allison Garcia Relation Name Status Comments Brother William Garcia Alive Brother: Asth ma,Eczema Father Kamerondo Garcia Alive Father: Lynne heredia cholesterol, Asthma Mother Lulú Garcia Alive Mother: Ali ve and well Other Family history of Diabetes mellitus, Family history of Elevated cholesterol, Family history of Asthma Sister Allison Garcia Alive Sister: Aliv e and well,Eczema Social History Tobacco Use Types Packs/Day Years [...] Orientation Straight 12/10/2022 6: 07 PM EDT Last Filed Vital Signs Vital Sign Reading Time Taken Comments Blood Pressure 105/68 09/23/2024 4:26 PM EST Pulse 83 09/23/2024 4:26 PM EST Temperature 36.3 C (97.4 F) 09/23/2024 4:26 PM EST Respiratory Rate 24 09/23/2018 9:58 AM EST Oxygen Saturation 99% 09/23/2018 9:58 AM EST Inhaled Oxygen Concentration - - Weight 54.3 kg (119 lb 9.6 oz) 09/23/2024 4:26 P M EST Height 156.3 cm (5' 1.54 ) 09/23/2024 4:26 PM ES T Body Mass Index 22.21 09/23/2024 4:26 PM EST Plan of Treatment Health Maintenance Due Date Last Done Comments Pneumococcal Vaccine (1 of 1 - PPSV23, PCV20, or PCV21) 2011 12/17/2006, 04/01/2006, 01/16/2006, Additional history exists Men B Vaccine (1 of 2 - Standard) 2021 Chlamydia and Gonorrhea Screening 08/26/2024 06/24/2024, 12/10/2022, 06/01/2021 Influenza Vaccines (#1) 2025 06/24/20, 12/10/2022, 06/01/2021, Additional history exists COVID-19 Vaccine (6 - 2024-2 6 season) 2025 06/24/2024, 12/10/2022, 10/09/2021, Additional history exists DTaP,Tdap,and Td Vaccines (8 - Td or Tdap) 03/05/2035 03/05/2025, 10/26/2016, 12/21/2009, Additional history exists Hepatitis B Vaccines Completed 04/16/2006, 01/16/2006, 2005, Additional history exists HIB Vaccines Completed 12/17/2006, 03/26, 01/16/2006, Additional history exists Hepatitis A Vaccines Completed 04/21/2007, 09/27/19 07 IPV Vaccines Completed 12/21/2009, 03/27, 01/16/2006, Additional history exists MMR Vaccines Completed 12/21/2009, 09/27/2006 Varicella Vaccines Completed 12/21/2009, 09/27/2006 HPV Vaccines Completed 12/24/2017, 10/26/2016 Meningococcal Vaccine Completed 12/10/2022, 017 HIV Screening Completed 06/24/2024 Hepatitis C Screening Completed 06/24/2024 Procedures * The patient is currently admitted. The information in this section might not be complete until the patient is discharged.Due to [place] [employer] law, this organization might not be sharing sensitive test results. Procedure Name Priority Date/Time Associated Diagnosis Comments CHLAMYDIA AND GONORRHEA, AMPLIFIED Routine 06/24/2024 1:09 PM EDT Screening examination for bacterial and spirochetal disease HEPATITIS C ANTIBODY WITH REFLEX TO HCV, RNA, QUANT, RT PCR Routine 06/24/2024 12:05 PM EDT Well adult exam from Last 3 Months or Most Recently Relevant to Health Maintenance Results * Due to [place] [employer] law, this organization might not be sharing sensitive test results. * Chlamydia and Gonorrhoea, Amplified (Urine) (06/24/2024 1:09 PM EDT) C trach RAINA Negative Negative [facility] N gonorrhoeae RAINA Negative Negative [facility] Urine (Urine, Random (not clean void)) 06/24/2024 1:09 PM EDT 06/25/2024 Comment:UR Narrative [facility] - 06/25/2024 6:06 PM EDT Performed at: 01 - [facility] [place] [address], [address], [place], [place] [id number] Grease Buffer: George Hurt MD, Phone: [phone] Payton Del Valle MD LAB MICROBIOLOGY - GENERAL ORDERABLES Final Result Performing Organization Address [facility]/ZIP Co de Phone Number [facility] [address] [place] [address] * Hepatitis C Antibody w/ reflex to HCV RNA Quant RT PCR (06/24/2024 12:05 PM EDT) [facility] Signature HCV Ab Non Reactive Non Reactive [facility] Blood 06/24/2024 12:0 5 PM EDT 06/25/2024 Narrative [facility] - 06/25/2024 11:08 AM EDT Performed at: 01 - [facility] [place] [address], [address], [place], [place] [id number] Grease Buffer: George Hurt MD, Phone: [phone] Payton Del Valle MD LAB BLOOD ORDERABLES Final Result Performing Organization Address City/[facility]/ZIP Co de Phone Number [facility] [address] [place] [address] from Last 3 Months or Most Recently Relevant to Health Maintenance Insurance [facility] NON [facility] ACO Care Teams Furnace Installer Helper Relationship Specialty Start Date End Date Payton Del Valle MD [address] [place] [address] PCP - General 04/05/17
--- OUTSIDE RECORDS SUMMARY | 2025-05-26 14:06 | XMS_ITS | Encounter Summary ---
Author Organization [facility] Address [address] [place] [address] Phone Care Team Providers Care Belt And Link Assembly Supervisor Name Role Phone Payton Del Valle MD Primary Care Provider Encounter Details Date Type Department Care Team (Late st Contact Info) Description 10/02/2016 Documentation [facility] [place] [address] [place] [address] Family Medicine, Physician [address] [place] [id number] Social History Tobacco Use Types Packs/Day Years [...] on filedocumented in this encounter Care Teams Belt And Link Assembly Supervisor Relationship Specialty Start Date End Date Payton Del Valle MD [address] [facility] [place] [address] PCP - General 04/05/17 documented as of this encounter
--- OUTSIDE RECORDS SUMMARY | 2025-05-26 14:06 | XMS_ITS | Encounter Summary ---
Author Organization [facility] Address [address] [place] [address] Phone Care Team Providers Care Barrer And Tacker Name Role Phone Payton Del Valle MD Primary Care Provider Encounter Details Date Type Department Care Team (Late st Contact Info) Description 11/12/2016 [place]ation [facility] [place] [address] [place] [address] Family Medicine, Physician [facility] [place], [place] [address] Social History Tobacco Use Types Packs/Day Years [...] on filedocumented in this encounter Care Teams Barrer And Tacker Relationship Specialty Start Date End Date Payton Del Valle MD [address] [place] [address] PCP - General 04/05/17 documented as of this encounter
--- OUTSIDE RECORDS SUMMARY | 2025-05-26 14:06 | XMS_ITS | Encounter Summary ---
Author Organization [facility] Address [address] [place] [address] Phone Care Team Providers Care Piano Mechanic Name Role Phone Payton Del Valle MD Primary Care Provider [phone] Reason for Visit * Reason Onset Date Comments headache/vomit following giving 05/26/2025 Encounter Details Date Type Department Care Team (Late st Contact Info) Description 05/26/2025 Telephone [facility] [place] [address] [place] [address] Ai Borrego LPN [address] [place] [address] headache/vomit following giving Social History Tobacco Use Types Packs/Day Years [...] encounter Miscellaneous Notes * Telephone Encounter - Ai Borrego LPN - 05/26/2025 10:41 AM EDT Mom calling, no release on file, she made 3 way call to pt. Who gave permission to speak. pt recently gave and has had c/o headache and vomiting since. Mom said she was seen at [facility], they checked her BP and sent her home advising pain reliever. Mom said pt continues with h/a and vomit. Advised best to go to [facility] ER. Mom/pt agreed. EH documented in this encounter Plan of Treatment Not on file documented as of this encounter Visit Diagnoses Not on filedocumented in this encounter Care Teams Piano Mechanic Relationship Specialty Start Date End Date Payton Del Valle MD [address] [facility] [place] [address] PCP - General 04/05/17 documented as of this encounter
--- OUTSIDE RECORDS SUMMARY | 2025-05-26 14:06 | XMS_ITS | Encounter Summary ---
Author Organization [facility] Address [address] [place] [address] Phone Care Team Providers Care Track Welder Name Role Phone Payton Del Valle MD Primary Care Provider [phone] Reason for Visit * Reason Comments Med Refill Encounter Details Date Type Department Care Team (Late st Contact Info) Description 11/25/2019 Refill [facility] [place] [address] [place] [address] Payton Del Valle MD [address] [place] [address] Intrinsic eczema Social History Tobacco Use Types Packs/Day Years Used Date Smoking Tobacco: Never Smokeless Tobacco: Never Comments:Never smoker Hunger/Food Answer Date Recorded No 06/02/2019 Stable Housing Answer Date Recorded No 08/27/2019 Transportation Concerns Answer Date Rec orded No 06/02/2019 Hazards in Home Answer Date Recorded No 06/02/2019 Financing Utilities Answer Date Recorde d No 06/02/2019 Safety at Home Answer Date Recorded No 06/02/2019 Outside Support Answer Date Recorded No 06/02/2019 Understanding Health Concerns Answer Da te Recorded No 06/02/2019 Financing Health Concerns Answer Date R ecorded No 06/02/2019 Missing School or Work Answer Date Luis rded No 06/02/2019 Comments No Sex and Gender Information Value Date Recorded Sex Assigned at Female 06/24/2024 11:35 AM EDT Legal Sex Female 5:22 PM EDT Gender Identity Female 06/24/2024 11:35 AM EDT Sexual Orientation Straight 12/10/2022 6: 07 PM EDT documented as of this encounter Miscellaneous Notes * Telephone Encounter - Payton Del Valle MD - 01/11/2020 5:38 PM EDT Waiting for Mom to call back to discuss. PPP * Telephone Encounter - Payton Del Valle MD - 11/26/2019 10:44 AM EDT Called and left message for Mom to call back. Script was refilled just 2 months ago. I would like to know what else Bibiana is using on her skin. PPP * Telephone Encounter - Ai Borrego LPN - 11/26/2019 8:06 AM EDT Pharm fax refill request betamethasone. EH documented in this encounter Plan of Treatment Not on file documented as of this encounter Visit Diagnoses Diagnosis Intrinsic eczema documented in this encounter Care Teams Track Welder Relationship Specialty Start Date End Date Payton Del Valle MD [address] [place] [address] [place] [address] PCP - General 04/05/17 documented as of this encounter
--- OUTSIDE RECORDS SUMMARY | 2025-05-26 14:06 | XMS_ITS | Encounter Summary ---
Author Organization [facility] Address [address] [place] [address] Phone Care Team Providers Care Test Manager Name Role Phone Payton Del Valle MD Primary Care Provider Encounter Details Date Type Department Care Team (Late st Contact Info) Description 01/15/2017 [place]ation [facility] [place] [address] [place] [address] Family Medicine, Physician [facility] [place], [place] [address] Social History Tobacco Use Types Packs/Day Years [...] on filedocumented in this encounter Care Teams Test Manager Relationship Specialty Start Date End Date Payton Del Valle MD [address] [place] [phone] PCP - General 04/05/17 documented as of this encounter
--- OUTSIDE RECORDS SUMMARY | 2025-05-26 14:06 | XMS_ITS | Encounter Summary ---
Author Organization [facility] Address [address] [place] [address] Phone Care Team Providers Care Crossword Puzzle Maker Name Role Phone Payton Del Valle MD Primary Care Provider Encounter Details Date Type Department Care Team (Late st Contact Info) Description 05/16/2016 Documentation [facility] [place] [address] [place] [address] Family Medicine, Physician [address] [place] [id number] Social History Tobacco Use Types Packs/Day Years [...] on filedocumented in this encounter Care Teams Crossword Puzzle Maker Relationship Specialty Start Date End Date Payton Del Valle MD [address] [facility] [place] [address] PCP - General 04/05/17 documented as of this encounter
[2025-05-26 14:34] LABS: Chlamydia pneumoniae PCR Not Detected (Not Detect.); Coronavirus 229E PCR Not Detected (Not Detect.); Coronavirus HKU1 PCR Not Detected (Not Detect.); Coronavirus NL63 PCR Not Detected (Not Detect.); Coronavirus OC43 PCR Not Detected (Not Detect.); RSV PCR Not Detected (Not Detect.); Rhino/Enterovirus PCR Not Detected (Not Detect.)
[2025-05-26 14:36] LABS: Influenza A H1 PCR Not Detected (Not Detect.); Influenza A H1-2009 PCR Not Detected (Not Detect.); Influenza A H3 PCR Not Detected (Not Detect.); SARS-CoV-2 PCR Not Detected (Not Detect.)
[2025-05-26] MEDS: Lactated Ringers 1,000 ML 999 ML IV (15:00)
[2025-05-26 16:49] LABS: Bacterial Vaginosis PCR NEGATIVE (Negative); Candida Group PCR NOT DETECTED (Not Detect); Candida glab krusei PCR NOT DETECTED (Not Detect); Trichomonas vaginalis PCR NOT DETECTED (Not Detect)
[2025-05-26 17:19] LABS: CT PCR NOT DETECTED (Not Detect.); NG PCR NOT DETECTED (Not Detect.)
== END 2025-05-26 17:14 | disposition home or self-care (01) ==
PROVIDERS: Emergency Provider Emergency Medicine; PCP Pediatrics
DX: O86.4 Pyrexia of unknown origin following delivery (principal); Z03.818 Encounter for observation for suspected exposure to other biological agents ruled out
CPT/HCPCS: 71046; 76856; 80048; 80076; 81001; 81515; 83605; 83690; 85007; 85027; 86140; 87040; 87086; 87491; 87502; 87591; 87633; 87635; 96361; 96365; 96375; 99284; 99285; J0696; J1836; J2765; J7120

== ENCOUNTER → 2025-05-26 12:09 | Outpatient (BNV) | payer OTHER, SELFPAY | PROVIDERS: Emergency Provider Emergency Medicine; PCP Pediatrics; Visit Provider Radiology Diagnostic Radiology | DX: R50.9 Fever, unspecified (principal) | CPT/HCPCS: 71046 ==